=== PATIENT | female | born 1945 | race Two or more races ===

== ENCOUNTER 2019-02-12 17:21 | Emergency (ER) | payer OTHER ==
[~2019-02-12] VITALS: Ht 152.4 cm; Wt 87.5 kg
[~2019-02-12 17:21] MED LIST: AMLODIPINE BESYL5 MG PO; CYCLOBENZAPRINE10 MG PO; DICLOFENAC POTA50 MG PO; ENALAPRIL MALEAT5 MG; HYDROCHLOROTHIA25 MG; MUCINEX DM TABL1 BOX; NABUMETONE750 MG PO
[2019-02-12] MEDS ORDERED: LYRICA50 MG (19:21)
[2019-02-12] MEDS ORDERED: IPRATROPIU0.2 MG/1 M (19:22)
[2019-02-12] MEDS ORDERED: LEVALBUTEROL (19:23)
[2019-02-12] MEDS ORDERED: MEDROLPACK PO (22:51)
[2019-02-12] MEDS ORDERED: ZITHROMAX500 MG PO (22:51)
[2019-02-12] MEDS ORDERED: TUSNEL LIQUID178 ML PO (22:51)
== END 2019-02-12 22:47 | disposition home or self-care (01) ==
LOC: ER 17:21
DX: J45.998 Other asthma (principal); B96.0 Mycoplasma pneumoniae [M. pneumoniae] as the cause of diseases classified elsewhere; J06.9 Acute upper respiratory infection, unspecified